=== PATIENT | male | born 1955 | race African-American/Black ===

== ENCOUNTER 2020-09-28 04:35 | Emergency (ER) | payer MEDICAID ==
[~2020-09-28] VITALS: Ht 172.7 cm; Wt 50.0 kg
[2020-09-28] MEDS ORDERED: KETOROLAC 60MG/2ML VIAL IM ONE (05:15)
[2020-09-28] MEDS ORDERED: OXYCODONE HCL/ACETAMINOPHEN 5/325MG TABLET PO ONE (07:00)
[2020-09-28 09:39] LABS: CLARITY URINE CLOUDY (CLEAR); COLOR URINE DARK YELLOW (YELLOW); KETONES URINE 1+ (NEGATIVE); LEUKOCYTE ESTERASE URINE 2+ (NEGATIVE); NITRITE URINE NEGATIVE (NEGATIVE); OCCULT BLOOD URINE NEGATIVE (NEGATIVE); PROTEIN URINE TRACE (NEGATIVE); SPECIFIC GRAVITY URINE 1.024 (1.005-1.030)
[2020-09-28] MEDS ORDERED: T3 PO (09:47)
[2020-09-28] MEDS ORDERED: IBUP-2030 MT (09:47)
[2020-09-28 10:57] VITALS: BP 138/60
== END 2020-09-28 10:58 | disposition home or self-care (01) ==
LOC: ER 04:35
DX: M54.5 Low back pain (principal); F17.210 Nicotine dependence, cigarettes, uncomplicated
CPT/HCPCS: 81003; 87086; 93005; 96372; 99285; J1885